=== PATIENT | male | born 1960 | race African-American/Black ===

== ENCOUNTER 2023-12-15 13:33 | Emergency (ER) | payer MEDICAID ==
[~2023-12-15] VITALS: Ht 182.9 cm; Wt 110.7 kg
[~2023-12-15 13:33] MED LIST: THE PO
[2023-12-15 13:45] VITALS: BP 157/102; PULSE 72; RESP 20; TEMP 97.7; O2SAT 97
[2023-12-15] MEDS: HYDROcodone/APAP 5/325 MG 1 TAB TAB PO ONE (14:14)
[2023-12-15] MEDS ORDERED: ACET-8905 PO (14:32)
[2023-12-15] MEDS: PENICILLIN G BENZATHINE L-A 1.2 MU/2 ML SYR IM ONE (14:49)
== END 2023-12-15 14:50 | disposition home or self-care (01) ==
LOC: MED 13:33
DX: M10.061 Idiopathic gout, right knee (principal); M17.11 Unilateral primary osteoarthritis, right knee; A51.0 Primary genital syphilis; A53.9 Syphilis, unspecified; Z79.899 Other long term (current) drug therapy
CPT/HCPCS: 87491; 96372; 99283; J0561

== ENCOUNTER 2023-12-16 11:18 | Emergency (ER) | payer MEDICAID ==
[~2023-12-16] VITALS: Ht 182.9 cm; Wt 111.1 kg
[~2023-12-16 11:18] MED LIST changes: +ACET-8905 PO
[2023-12-16 11:53] VITALS: BP 156/104; PULSE 68; RESP 18; TEMP 98.3; O2SAT 97
== END 2023-12-16 12:48 | disposition home or self-care (01) ==
LOC: MED 11:18
DX: A53.9 Syphilis, unspecified (principal); Z79.899 Other long term (current) drug therapy
CPT/HCPCS: 86592; 99283

== ENCOUNTER 2024-08-22 14:42 | Emergency (ER) | payer MEDICAID ==
[~2024-08-22] VITALS: Ht 182.9 cm; Wt 105.9 kg
[2024-08-22 14:48] VITALS: BP 167/99; PULSE 79; RESP 18; TEMP 97.1; O2SAT 98
[2024-08-22] MEDS: HYDROcodone/APAP 5/325 MG 1 TAB TAB PO ONE (15:56)
[2024-08-22 16:06] VITALS: O2SAT 98
[2024-08-22 17:29] LABS: HEMATOCRIT 42.1 % (36-52); MEAN CORPUSCULAR HEMOGLOBIN 30 pg (27-31); MEAN CORPUSCULAR HGB CONC 33 g/dL (33-37); MEAN CORPUSCULAR VOLUME 90.7 fL (80-94); PLATELET COUNT (AUTO) 294 K/uL (140-450); RED BLOOD CELL COUNT(AUTO) 4.65 MIL/uL (4.20-6.10); RED CELL DISTRIBUTION WIDTH 14.2 % (11.6-13.7); WHITE BLOOD COUNT (AUTO) 7.3 K/uL (4.8-10.8)
[2024-08-22 17:44] LABS: CARBON DIOXIDE 30.4 mmol/L (21-32); CREATININE 1.1 mg/dL (0.6-1.3); POTASSIUM 4.4 mmol/L (3.5-5.1)
[2024-08-22] MEDS ORDERED: IBUP-2218 PO (17:50)
[2024-08-22] MEDS ORDERED: HYDR-5071 PO (17:50)
[2024-08-22] MEDS ORDERED: CEPH-588 PO (17:50)
[2024-08-22] MEDS ORDERED: PRED20TA5 PO (17:50)
[2024-08-22 17:51] LABS: BASOPHILS % (MANUAL) 3 % (0-2); EOSINOPHILS % (MANUAL) 4 % (0-4); LYMPHOCYTES % (MANUAL) 17 % (20-46); MONOCYTES % (MANUAL) 5 % (5-12); PLATELET ESTIMATE ADEQUATE
== END 2024-08-22 18:12 | disposition home or self-care (01) ==
LOC: MED 14:42
DX: M10.9 Gout, unspecified (principal); Z79.899 Other long term (current) drug therapy
CPT/HCPCS: 36415; 73630; 80048; 82948; 83605; 85025; 85651; 86140; 87040; 99284